=== PATIENT | female | born 1960 | race Caucasian/White ===

== ENCOUNTER 2021-03-15 10:07 | Emergency (ER) | payer SELFPAY ==
[2021-03-15 11:20] LABS: BASO # 0.02 (0.02-0.10); EOS # 0.26 (0.04-0.40); HEMATOCRIT 43.3 % (37.0-47.0); HEMOGLOBIN 13.6 g/dL (12.5-16.0); LYMPH# 1.36 (1.50-4.00); MEAN CELL VOLUME 85 fl (78-100); MEAN CORPUSCULAR HEMOGLOBIN 27 pg (27-31); MEAN CORPUSCULAR HGB CONC 31 g/dL (33-37); MEAN PLATELET VOLUME 9.9 fl (7.4-10.4); MONO # 0.65 (0.20-0.80); NEU # 6.43 (1.40-6.50); PLATELET COUNT 297 K/mm3 (130-400); RED BLOOD COUNT 5.12 M/mm3 (4.10-5.30); RED CELL DISTRIBUTION WIDTH 14.2 % (11.5-14.5); WHITE BLOOD COUNT 8.7 K/mm3 (4.8-10.8)
[2021-03-15 11:29] LABS: ALBUMIN 3.9 g/dL (3.5-5.0); POTASSIUM 3.7 mmol/L (3.5-5.1)
[2021-03-15 11:31] LABS: CALCIUM 9.3 mg/dL (8.3-10.5)
[2021-03-15 11:34] LABS: TOTAL BILIRUBIN 0.6 mg/dL (0.2-1.2)
[2021-03-15] MEDS ORDERED: PROAIR HFA0.09 MG/AC IH (12:12)
[2021-03-15] MEDS ORDERED: PREDNISONE20 M1 PO (12:12)
[2021-03-15 12:24] LABS: URINE APPEARANCE CLEAR; URINE BILIRUBIN NEGATIVE (NEGATIVE); URINE BLOOD 50 ery/uL (NEGATIVE); URINE COLOR AMBER; URINE GLUCOSE NEGATIVE (NEGATIVE); URINE KETONE NEGATIVE (NEGATIVE); URINE LEUKOCYTE ESTERASE NEGATIVE (NEGATIVE); URINE MUCUS PRESENT (NOT PRESENT); URINE NITRATE NEGATIVE (NEGATIVE); URINE PROTEIN(semi-quant) TRACE mg/dL (NEGATIVE); URINE UROBILINOGEN NORMAL (NORMAL)
[2021-03-15 13:01] VITALS: BP 123/85
== END 2021-03-15 12:27 | disposition home or self-care (01) ==
LOC: ED 10:07
PROVIDERS: Nurse Practitioner
DX: J45.901 Unspecified asthma with (acute) exacerbation (principal); F17.200 Nicotine dependence, unspecified, uncomplicated; Z20.822 Contact with and (suspected) exposure to COVID-19
CPT/HCPCS: J7512

== ENCOUNTER 2021-03-17 09:24 | Emergency (ER) | payer SELFPAY ==
[~2021-03-17] VITALS: Ht 162.6 cm; Wt 45.5 kg
[~2021-03-17 09:24] MED LIST: PREDNISONE20 M1 PO; PROAIR HFA0.09 MG/AC IH
[2021-03-17] MEDS ORDERED: TRAZODONE HCL300 MG (09:39)
[2021-03-17] MEDS ORDERED: BUTALBITAL, ACE1 TA2 PO (09:39)
[2021-03-17 10:28] LABS: BASO # 0.02 (0.02-0.10); EOS # 0.16 (0.04-0.40); EOS % 1.4 % (1.0-5.0); HEMATOCRIT 42.2 % (37.0-47.0); HEMOGLOBIN 13.3 g/dL (12.5-16.0); LYMPH# 1.27 (1.50-4.00); MEAN CELL VOLUME 86 fl (78-100); MEAN CORPUSCULAR HEMOGLOBIN 27 pg (27-31); MEAN CORPUSCULAR HGB CONC 32 g/dL (33-37); MEAN PLATELET VOLUME 10.3 fl (7.4-10.4); NEU # 9.28 (1.40-6.50); PLATELET COUNT 389 K/mm3 (130-400); RED BLOOD COUNT 4.93 M/mm3 (4.10-5.30); RED CELL DISTRIBUTION WIDTH 14.7 % (11.5-14.5); WHITE BLOOD COUNT 11.7 K/mm3 (4.8-10.8)
[2021-03-17 10:50] LABS: D-DIMER 0.94 mg/L FEU (0.15-0.50)
[2021-03-17] MEDS ORDERED: PREDNISONE20 M1 PO (10:58)
[2021-03-17 11:17] VITALS: BP 106/57
== END 2021-03-17 11:21 | disposition home or self-care (01) ==
LOC: ED 09:24
PROVIDERS: Family Medicine
DX: J45.901 Unspecified asthma with (acute) exacerbation (principal); M94.0 Chondrocostal junction syndrome [Tietze]; F41.9 Anxiety disorder, unspecified; Z79.899 Other long term (current) drug therapy